=== PATIENT | female | born 1945 | race Caucasian/White ===

== ENCOUNTER → 2017-08-26 | Outpatient (CLI) | payer OTHER, BC ==
[~2017-08-26] MED LIST: ACETAMINOPHEN650 M5 PO; ASPIR 8181 MG PO; CYCLOBENZAPRINE5 MG PO; HYDROCHLOROTHIA25 M1 PO; HYDROCODONE-APA1 TA1 PO; LEVOTHYROXIN0.075 MG PO; LOSARTAN-HCTZ1 EAC3 PO; NAPROSYN500 MG PO; NEURONTIN300 MG PO; NEXIUM 24HR20 MG PO; NEXIUM20 MG PO; NORVASC5 MG PO; PERCOCET 10-321 EACH PO; PRAVACHOL40 MG PO; TRAMADOL 50 MG50 MG PO; XANAX1 MG PO; XARELTO10 MG PO; ZYRTEC10 M2 PO
== END ==
LOC: RAD 02:02
DX: Z12.31 Encounter for screening mammogram for malignant neoplasm of breast (principal)

== ENCOUNTER → 2017-09-03 | Outpatient (CLI) | payer OTHER, BC | LOC: RAD 09:50 | DX: R92.8 Other abnormal and inconclusive findings on diagnostic imaging of breast (principal) ==

== ENCOUNTER → 2018-09-17 | Outpatient (CLI) | payer OTHER, BC | LOC: RAD 01:18 | DX: Z12.31 Encounter for screening mammogram for malignant neoplasm of breast (principal) ==

== ENCOUNTER → 2019-09-12 | Outpatient (CLI) | payer OTHER | LOC: MRI 13:55 | DX: M47.816 Spondylosis without myelopathy or radiculopathy, lumbar region (principal); M48.061 Spinal stenosis, lumbar region without neurogenic claudication ==

== ENCOUNTER → 2019-09-19 | Outpatient (CLI) | payer OTHER | LOC: RAD 10:55 → BC 13:55 → RAD 14:35 → BC 21:04 | DX: Z12.31 Encounter for screening mammogram for malignant neoplasm of breast (principal) ==